=== PATIENT | male | born 1940 | race Hispanic/Latino ===

== ENCOUNTER 2018-03-24 12:50 | Emergency (ER) | payer MEDICARE ==
[~2018-03-24 12:50] MED LIST: ISOVUE-370 76%-LOCM 1 ML ONE
[2018-03-24 13:15] LABS: Bilirubin Small (Negative); Blood, Urine Negative (Negative); Clarity CLEAR (Clear); Glucose, Urine (Dipstick) Negative (Negative); Leukocyte Small (Negative); Nitrite Negative (Negative); Protein, Urine (Dipstick) Negative (Neg-Trace); Specific Gravity, Urine 1.034 (1.002-1.036); pH, Urine 5.5 (5.0-9.0)
[2018-03-24 13:17] LABS: Bacteria/HPF None Seen HPF (None Seen); Hyaline Casts/LPF 7-10 HYALINE CAST LPF (0-3 Hyaline); Pathc Cast-AUWi Flag 0.43 (0-2.49); RBC/HPF 0-3 HPF (0-3); Squamous Epithelial 0-3 HPF (0-3)
[2018-03-24 13:49] LABS: #Eosinphils 0.2 thou/uL (0.0-0.7); #Lymphocytes 1.1 thou/uL (1.20-3.40); #Monocytes 0.5 thou/uL (0.11-0.59); #Neutrophils 4.8 thou/uL (1.40-6.50); %Basophils 0.5 % (0.0-1.0); %Eosinophils 3.4 % (0.0-10.0); %Lymphocytes 16.3 % (21.0-51.0); %Monocytes 7.1 % (0.0-10.0); %Neutrophils 72.8 % (42.0-75.0); Hemoglobin 11.7 g/dL (14.0-18.0); Mean Corpuscular Hemoglobin 22.3 pg (27.0-31.0); Mean Corpuscular Volume 69.8 fL (78.0-98.0); Mean Platelet Volume 9.7 fL (7.4-10.4); Platelet Count 177 thou/uL (130-400); RBC Distribution Width 15.9 % (11.5-14.5); Red Blood Cell (RBC) Count 5.25 mill/uL (4.70-6.10); White Blood Cell (WBC) Count 6.6 thou/uL (4.8-10.8)
[2018-03-24 14:07] LABS: Hypochromia SLIGHT = 6-15 cells (100X) (0-5/hpf); MDiff Complete? YES; Microcytosis MODERATE=15-30 cells (100X) (0-5/hpf); PLT Morphology Comment Appears Adequate; Polychromasia SLIGHT = 2-3 cells (100X) (0-2/hpf)
[2018-03-24 14:08] LABS: ALT (SGPT) 16 U/L (8-55); AST (SGOT) 24 U/L (5-34); Albumin 4.2 g/dL (3.4-4.8); Alkaline Phosphatase 61 U/L (40-150); Anion Gap 11 mmol/L (10-20); BUN (Urea Nitrogen) 27 mg/dL (8.4-25.7); Bilirubin, Total 0.9 mg/dL (0.2-1.2); Calc. Creatinine Clearance 0 mL/min (70-130); Calcium 9.3 mg/dL (7.8-10.44); Carbon Dioxide 26 mmol/L (23-31); Chloride 105 mmol/L (98-107); Estimated GFR-MDRD 56; Globulin 2.8 g/dL (2.4-3.5); Glucose 116 mg/dL (83-110); Sodium 138 mmol/L (136-145)
--- NOTE | 2018-03-24 15:03 | CT ---
CT ABDOMEN AND PELVIS WITH IV CONTRAST: Date: 03/24/18 HISTORY: Right-sided abdominal pain. FINDINGS: There are dependent changes in the lung bases. No free air, free fluid, or lymphadenopathy seen in th e abdomen or pelvis. There are vascular calcifications without evidence of aneurysmal dilatation of t he abdominal aorta. Degenerative changes are noted in the spine. The liver, spleen, pancreas, and adrenal glands appear normal. Gallbladder is not seen, likely due to previous cholecystectomy. Bilateral renal cysts are present. There is right-sided hydroureteronephrosis secondary to a 4.5 mm c alculus in the right ureter at the pelvic inlet. There is relatively delayed enhancement of the right kidney compared to the left. A normal appearing appendix is present. Small fat-containing left ingui nal hernia is noted. IMPRESSION: 1. 4.5 mm obstructing right ureteric calculus at the pelvic inlet. 2. No evidence of appendicitis. POS: [facility]
[2018-03-24] MEDS ORDERED: Ketorolac Tromethamine 30 MG/ML VIAL ONE (15:33)
[2018-03-24] MEDS ORDERED: Fentanyl 100 MCG/2 ML VIAL ONE (15:33)
== END 2018-03-24 16:12 | disposition home or self-care (01) ==
LOC: ERS 12:50
DX: N13.2 Hydronephrosis with renal and ureteral calculous obstruction (principal); I25.10 Atherosclerotic heart disease of native coronary artery without angina pectoris; E78.5 Hyperlipidemia, unspecified; I10 Essential (primary) hypertension; Z79.899 Other long term (current) drug therapy; Z79.82 Long term (current) use of aspirin
CPT/HCPCS: 74177; 80053; 81003; 81015; 83605; 83690; 85025; 96361; 96374; 96375; J1885; J3010

== ENCOUNTER 2019-07-26 12:55 | Emergency (ER) | payer MEDICARE ==
--- NOTE | 2019-07-26 13:50 | RAD ---
Right elbow:4 views INDICATIONS: Injury with pain COMPARISON: None FINDINGS: No evidence of fracture or osseous abnormality. Mild degenerative change No evidence of joint effusion No soft tissue abnormality. IMPRESSION: No acute finding
== END 2019-07-26 14:15 | disposition home or self-care (01) ==
LOC: ERS 12:55
DX: M70.31 Other bursitis of elbow, right elbow (principal); I10 Essential (primary) hypertension; E78.5 Hyperlipidemia, unspecified; I25.10 Atherosclerotic heart disease of native coronary artery without angina pectoris; W19.XXXA Unspecified fall, initial encounter; Z79.899 Other long term (current) drug therapy; Z79.82 Long term (current) use of aspirin